=== PATIENT | male | born 1980 | race Two or more races ===

== ENCOUNTER 2019-10-28 18:24 | Emergency (ER) | payer BC, OTHER ==
[~2019-10-28] VITALS: Ht 167.6 cm; Wt 95.3 kg
[2019-10-28] MEDS ORDERED: HYDROcodone-ACET 10/325MG TAB PO ONE (20:00)
[2019-10-28 20:38] VITALS: BP 116/76
== END 2019-10-28 21:24 | disposition home or self-care (01) ==
LOC: ER 18:24
DX: S42.021A Displaced fracture of shaft of right clavicle, initial encounter for closed fracture (principal); V87.8XXA Person injured in other specified noncollision transport accidents involving motor vehicle (traffic), initial encounter; Y93.55 Activity, bike riding; Y92.89 Other specified places as the place of occurrence of the external cause; Y99.8 Other external cause status
CPT/HCPCS: 73030